=== PATIENT | female | born 1990 | race Native Hawaiian/Other Pacific Islander ===

== ENCOUNTER 2017-06-03 10:56 | Emergency (ER) | payer OTHER ==
[~2017-06-03] VITALS: Ht 167.6 cm; Wt 52.2 kg
== END 2017-06-03 12:13 | disposition home or self-care (01) ==
LOC: ED 10:56
DX: N73.9 Female pelvic inflammatory disease, unspecified (principal); Z01.419 Encounter for gynecological examination (general) (routine) without abnormal findings
CPT/HCPCS: 87210; 87590; 96372; 99284; J0696

== ENCOUNTER 2017-07-05 15:07 | Emergency (ER) | payer OTHER ==
[~2017-07-05] VITALS: Ht 167.6 cm; Wt 52.2 kg
[2017-07-05 16:24] LABS: PLATELET COUNT 245 K/uL (152-353)
[2017-07-05 16:31] LABS: POTASSIUM 3.7 mmol/L (3.6-5.2); SODIUM 137 mmol/L (136-145)
== END 2017-07-05 17:15 | disposition home or self-care (01) ==
LOC: ED 15:07
DX: A74.9 Chlamydial infection, unspecified (principal)
CPT/HCPCS: 36415; 80053; 81000; 85027; 99283